=== PATIENT | male | born 1965 | race Two or more races ===

== ENCOUNTER 2024-05-31 13:35 | Emergency (ER) | payer OTHER ==
[~2024-05-31] VITALS: Ht 167.6 cm; Wt 84.0 kg
[2024-05-31 13:43] VITALS: BP 83/65; PULSE 90; RESP 24; O2SAT 99
[2024-05-31] MEDS: SODIUM CHLORIDE 0.9% 2,000 ML IV ONE (13:56)
[2024-05-31] MEDS: ONDANSETRON HCL 4 MG/2 ML VIAL IVP ONE (13:57)
[2024-05-31] MEDS: LIDOCAINE 1% 10 ML VIAL SQ ONE (13:58)
[2024-05-31] MEDS ORDERED: CeFAZolin 1 GM/DEXTROSE 50 ML IV ONE (13:58)
[2024-05-31] MEDS: BACITRACIN 0.9 GM PACKET OINTMENT TP ONE (13:58)
[2024-05-31] MEDS: PERTUSS(ACELL),DIPH,TET/PF 0.5 ML SYRINGE [ADULT] IM. ONE (13:58)
[2024-05-31] MEDS: CeFAZolin 1 GM/DEXTROSE 50 ML IV ONE (14:02)
[2024-05-31 14:15] LABS: BASOPHILS % (AUTO) 0.9 % (0.0-2.0); EOSINOPHILS % (AUTO) 2.2 % (1.0-6.0); HEMATOCRIT 35.7 % (41-53); HEMOGLOBIN 11.8 g/dL (13.5-17.5); LYMPHOCYTES # (AUTO) 1.9 K/uL (1.0-4.8); LYMPHOCYTES % (AUTO) 28.5 % (22.0-44.0); MEAN CORPUSCULAR HEMOGLOBIN 30.8 pg (26.0-34.0); MEAN CORPUSCULAR VOLUME 94 fL (80-100); MONOCYTES # (AUTO) 0.6 K/uL (0.1-1.0); MONOCYTES % (AUTO) 9.3 % (2.0-9.0); NEUTROPHILS # (AUTO) 3.9 K/uL (1.8-7.7); NEUTROPHILS % (AUTO) 59.1 % (40.0-70.0); PLATELET COUNT (AUTO) 239 K/uL (150-450); RED BLOOD CELL COUNT(AUTO) 3.82 MIL/uL (4.50-5.90); RED CELL DISTRIBUTION WIDTH 14.1 % (11.5-14.5); WHITE BLOOD COUNT (AUTO) 6.6 K/uL (4.5-11.0)
[2024-05-31 14:36] LABS: ANION GAP 10 mmol/L (8-16); CALCIUM, TOTAL 7.5 mg/dL (8.8-10.5); CARBON DIOXIDE 22 mmol/L (22-29); CREATININE 1.13 mg/dL (0.60-1.30); GLOMERULAR FILTR. RATE CALC > 60 mL/min (>60); GLUCOSE,RANDOM 119 mg/dL (70-110); UREA NITROGEN, BLOOD 12 mg/dL (7-18)
[2024-05-31 14:41] LABS: CHLORIDE 107 mmol/L (98-107); SODIUM SERUM 141 mmol/L (136-145)
== END 2024-05-31 21:24 | disposition short-term general hospital (02) ==
LOC: EMS 13:35
DX: S45.112A Laceration of brachial artery, left side, initial encounter (principal); R53.83 Other fatigue; R55 Syncope and collapse; F17.210 Nicotine dependence, cigarettes, uncomplicated; X58.XXXA Exposure to other specified factors, initial encounter; Y93.01 Activity, walking, marching and hiking; Y92.89 Other specified places as the place of occurrence of the external cause; Y99.8 Other external cause status
CPT/HCPCS: 99284; 96365; 96375; 80048; 85025; 36415; 82962; 90715; 90471; J0690; J2405; J3490; J7030